=== PATIENT | female | born 2000 | race American Indian/Alaskan Native ===

== ENCOUNTER 2022-05-04 10:34 | Emergency (ER) | payer OTHER ==
[2022-05-04] MEDS ORDERED: Ibuprofen 200 MG TAB ONE (11:01)
== END 2022-05-04 11:13 | disposition home or self-care (01) ==
LOC: ERS 10:34
DX: M25.522 Pain in left elbow (principal); Y93.02 Activity, running
CPT/HCPCS: 99283